=== PATIENT | male | born 1980 | race Caucasian/White ===

== ENCOUNTER 2018-03-13 10:53 | Emergency (ER) | payer OTHER ==
[2018-03-13 11:01] VITALS: BP 138/71
--- NOTE | 2018-03-13 11:48 | RAD ---
INDICATION: Right wrist injury. TECHNIQUE: 3 views of the right wrist were obtained. FINDINGS: There is mild diffuse soft tissue swelling. There is a transverse fracture through the midportion of the scaphoid bone which appears slightly displaced, age indeterminate. No other fractures are seen. IMPRESSION: TRANSVERSE SLIGHTLY DISPLACED FRACTURE OF THE SCAPHOID BONE AGE INDETERMINATE. RECOMMEND CT OR MR OUTPATIENT IMAGING FOR FURTHER EVALUATION.
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
== END 2018-03-13 12:10 | disposition home or self-care (01) ==
LOC: UCEAST 10:53
DX: S62.001A Unspecified fracture of navicular [scaphoid] bone of right wrist, initial encounter for closed fracture (principal); X58.XXXA Exposure to other specified factors, initial encounter; Y93.72 Activity, wrestling; Y92.9 Unspecified place or not applicable; F17.210 Nicotine dependence, cigarettes, uncomplicated
CPT/HCPCS: 99212; G0463

== ENCOUNTER 2018-12-30 19:00 | Emergency (ER) | payer SELFPAY ==
[2018-12-30 19:09] VITALS: BP 134/81
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
[2018-12-30] MEDS ORDERED: Tetracaine 0.5% OPTH.SOL 4 ML* 1 DROP BTL LEFT EYE ONE (19:31)
[2018-12-30] MEDS ORDERED: Eye Irrigation Solution 30 ML BOTTLE LEFT EYE ONE (19:31)
[2018-12-30] MEDS ORDERED: Fluorescein Sodium TOPICAL* 1 MG TEST STRIP OPHTHALMIC ONE (19:32)
[2018-12-30] MEDS ORDERED: NS 0.9% 1000 ML** 1,000 ML IV ONE ×2 (19:38→20:52)
[2018-12-30] MEDS ORDERED: Tetan/Diph/Pertus SYR(Tdap)* 0.5 ML SYR(BOOSTRIX) use SYR IM ONE (19:48)
[2018-12-30] MEDS ORDERED: Ibuprofen TAB* 400 MG PO ONE (20:52)
== END 2018-12-30 21:05 | disposition short-term general hospital (02) ==
LOC: UCEAST 19:00
DX: T54.3X1A Toxic effect of corrosive alkalis and alkali-like substances, accidental (unintentional), initial encounter (principal); T26.52XA Corrosion of left eyelid and periocular area, initial encounter; T15.92XA Foreign body on external eye, part unspecified, left eye, initial encounter; Z23 Encounter for immunization; F17.210 Nicotine dependence, cigarettes, uncomplicated; X58.XXXA Exposure to other specified factors, initial encounter; Y93.89 Activity, other specified; Y92.9 Unspecified place or not applicable
CPT/HCPCS: 83986; 90471; 90715; 99213; A9270-GY; G0463